=== PATIENT | female | born 1965 | race Caucasian/White ===

== ENCOUNTER → 2017-05-02 12:24 | Outpatient (CLI) | payer MEDICAID, SELFPAY ==
--- NOTE | 2017-05-02 13:00 | MRI_ITS ---
STUDY: MRI LUMBAR SPINE WITHOUT CONTRAST REASON FOR EXAM: Female, 51 years old. BACK AND RT LEG PAIN, FALL X 2. TECHNIQUE: Standardized fat and water weighted pulse sequences were obtained in the sagittal and axial planes. COMPARISON: None FINDINGS: T12-L1: Normal endplates. Normal disc height, hydration and morphology. Normal bilateral facet joints. Normal central canal and bilateral lateral recesses. Normal bilateral intervertebral neural foramina. Normal lumbar lordosis. There is no substantial scoliosis. Normal conus medullaris that terminates at the L1 L1-2: Normal endplates. Normal disc height, hydration and morphology. Normal bilateral facet joints. Normal central canal and bilateral lateral recesses. Normal bilateral intervertebral neural foramina. L2-3: There is minimal disc space narrowing and endplate spondylosis. There is no significant disc herniation, spinal canal or foramina stenosis.. L3-4: There is minimal disc space narrowing and endplate spondylosis. There is a mild disc bulge without significant central canal or foraminal stenosis. L4-5: There is minimal disc space narrowing and endplate spondylosis. There is a minimal disc bulge without significant central canal or foraminal stenosis. L5-S1: There is minimal disc space narrowing and endplate spondylosis. There is a minimal disc bulge without significant central canal or foraminal stenosis. Normal visualized sacral ala. Normal visualized paraspinous soft tissue structures. MRI/Spine Lumbar (Routine) IMPRESSION: Minimal multilevel degenerative changes. Electronically Signed: Spenser Chacko MD at 12:26 EST Tel , Service support ,
== END ==
PROVIDERS: Family Provider Family Medicine; PCP Family Medicine; Visit Provider Anesthesiology Pain Medicine
DX: M54.9 Dorsalgia, unspecified (principal); M79.604 Pain in right leg
CPT/HCPCS: 72148

== ENCOUNTER → 2017-06-05 13:00 | Outpatient (CLI) | payer MEDICAID, SELFPAY ==
--- NOTE | 2017-06-05 13:05 | RAD_ITS ---
STUDY: X-RAY - CERVICAL SPINE REASON FOR EXAM: Female, 51 years old. Neck and arm pain TECHNIQUE: 2 view(s) of the cervical spine were obtained. COMPARISON: 01/02/2017 FINDINGS: Normal anterior atlantoaxial articulation. Normal odontoid process. Normal cervical lordosis. Normal vertebral bodies and endplates. Mild disc space narrowing. The soft tissue structures are unremarkable. RAD/Cerv Spine 2 or 3 Views IMPRESSION: Mild disc space narrowing, otherwise unremarkable cervical spine. Electronically Signed: Bird Crews MD at 13:29 EDT , Service support ,
== END ==
PROVIDERS: Family Provider Family Medicine; PCP Family Medicine; Visit Provider Anesthesiology Pain Medicine
DX: M54.2 Cervicalgia (principal); M79.603 Pain in arm, unspecified
CPT/HCPCS: 72040; 72050

== ENCOUNTER → 2017-06-27 14:03 | Outpatient (CLI) | payer MEDICAID, SELFPAY ==
--- NOTE | 2017-06-27 14:04 | RAD_ITS ---
STUDY: X-RAY - RIGHT SHOULDER REASON FOR EXAM: Shoulder pain. TECHNIQUE: 3 view(s) of the shoulder. COMPARISON: None. FINDINGS: Normal glenohumeral articulation. Normal acromioclavicular joint. Normal acromion. Normal humeral head and visualized proximal humerus. The soft tissue structures are unremarkable. Normal visualized pulmonary apex. RAD/Shoulder min 2 Views IMPRESSION: Normal x-ray examination of the right shoulder. Electronically Signed: Almas Langford MD at 15:55 EDT Tel , Service support ,
== END ==
PROVIDERS: Family Provider Family Medicine; PCP Family Medicine; Visit Provider Orthopaedic Surgery
DX: M25.511 Pain in right shoulder (principal)
CPT/HCPCS: 73030

== ENCOUNTER → 2018-11-27 09:11 | Outpatient (CLI) | payer MEDICAID, SELFPAY ==
[2018-11-08 15:01] VITALS: BMI 20.5
== END ==
PROVIDERS: Family Provider Family Medicine; PCP Family Medicine; Referring Provider Internal Medicine Cardiovascular Disease; Visit Provider Internal Medicine Cardiovascular Disease
DX: I95.9 Hypotension, unspecified (principal); R00.2 Palpitations
CPT/HCPCS: 93225; 93226

== ENCOUNTER → 2018-11-29 08:27 | Outpatient (CLI) | payer MEDICAID, SELFPAY ==
[2018-11-08 15:01] VITALS: BMI 20.5
--- NOTE | 2018-11-29 08:27 | ECHOD_ITS ---
Reason For Study: ARRHYTHMIA Procedure This was a 2D Doppler, Color Flow transthoracic echocardiogram. The exam was of adequate technical quality. Exam performed in department. Left Ventricle Normal LV size. Left ventricular systolic function is normal. The estimated ejection fraction is 60 %. No evidence for diastolic dysfunction. No regional wall motion abnormalities noted. Right Ventricle Normal RV size. Normal systolic function. Atria Normal left atrium. Normal right atrium. No doppler evidence for ASD. Mitral Valve There is mild mitral annular calcification. Normal mitral valve. Trivial mitral valve insufficiency. Tricuspid Valve Normal tricuspid valve. Mild tricuspid valve insufficiency. Right ventricular systolic pressure estimated to be 21 mmHg. Aortic Valve Trisinus/trileaflet aortic valve. Mild diffuse aortic valve thickening. Mild (1+) aortic valve insufficiency. Pulmonic Valve The pulmonic valve is not well visualized. Great Vessels Normal sized aortic root. Pericardium/Pleural No pericardial effusion. MMode/2D Measurements & Calculations LVIDd: 3.8 cm IVSd: 0.72 cm Ao root diam: 3.0 cm LVIDs: 2.7 cm LVPWd: 0.76 cm RVDd: 3.2 cm FS: 28.0 % LAV(MOD-bp): 34.2 ml LVAd ap4: 22.0 cm2 SV(MOD-sp4): 32.7 ml LAV(MOD-bp) Indexed: 22.6 ml/m2 EDV(MOD-sp4): 56.6 ml LAV(MOD-sp2): 34.9 ml EDV(sp4-el): 59.9 ml LAV(MOD-sp4): 28.0 ml LVAs ap4: 13.4 cm2 ESV(MOD-sp4): 23.9 ml ESV(sp4-el): 25.1 ml EF(MOD-sp4): 57.8 % EF(sp4-el): 58.1 % SV(sp4-el): 34.8 ml LA A4 area: 12.6 cm2 LA dimension(2D): 2.9 cm RA A4 area: 11.2 cm2 Time Measurements MV dec time: 0.19 sec Doppler Measurements & Calculations MV E max jesse: 63.9 cm/sec Lat Peak E' Jesse: 8.4 cm/sec Med Peak E' Jesse: 5.4 cm/sec MV A max jesse: 49.7 cm/sec E/E' lat: 7.6 E/E' med: 11.8 MV E/A: 1.3 Ao V2 max: 101.3 cm/sec AI max jesse: 429.6 cm/sec LV V1 max: 77.1 cm/sec Ao max P.1 mmHg AI max P.9 mmHg LV V1 max P.4 mmHg AI dec slope: 195.5 cm/sec2 AI P1/2t: 643.6 msec PA V2 max: 61.5 cm/sec TR max jesse: 213.5 cm/sec TR max P.2 mmHg Interpretation Summary Left ventricular systolic function is normal. The estimated ejection fraction is 60 %. There is mild mitral annular calcification. Trivial mitral valve insufficiency. Mild tricuspid valve insufficiency. Mild diffuse aortic valve thickening. Mild (1+) aortic valve insufficiency. Right ventricular systolic pressure estimated to be 21 mmHg. No evidence for diastolic dysfunction. Ordering Physician: Max Rajput Referring Physician: SANDEE HANNA Performed By: Caterina Esqueda, RDCS, RVT
== END ==
PROVIDERS: Family Provider Family Medicine; PCP Family Medicine; Referring Provider Internal Medicine Cardiovascular Disease; Visit Provider Internal Medicine Cardiovascular Disease
DX: I95.9 Hypotension, unspecified (principal); R00.2 Palpitations
CPT/HCPCS: 93306

== ENCOUNTER 2024-05-04 16:56 | Emergency (ER) | payer MEDICAID, SELFPAY ==
[2024-05-04 16:57] VITALS: BP 125/75; PULSE 94; RESP 19; TEMP 36.7; O2SAT 95; BMI 21.2
--- NOTE | 2024-05-04 17:06 | EX.ED.DYSGE1 ---
HPI History of Present Illness Chief Complaint: [facility] Medical History (Updated 12/21/18 @ 09:04 by Estelita Main) Osteoporosis Fibromyalgia Asthma Palpitations Hypotension Home Medications ?Medication ?Instructions ?Recorded ?Last Taken ?Type albuterol sulfate 90 mcg/actuation 2 puff inhalation Q4H 11/07/18 Unknown History aerosol inhaler (ProAir HFA) alendronate 70 mg tablet (Fosamax) 70 mg PO QWEEK 11/07/18 Unknown History benztropine 1 mg tablet 1 mg PO BID 11/07/18 Unknown History bupropion HCl 150 mg 24 hr tablet, 150 mg PO QAM 11/07/18 Unknown History extended release (Wellbutrin XL) calcium carbonate 500 mg PO TID 11/07/18 Unknown History clonazepam 0.5 mg tablet 0.5 mg PO BID 11/07/18 Unknown History conj estrogen-medroxyprogesterone 1 tab PO DAILY 11/07/18 Unknown History 0.3 mg-1.5 mg tablet (Prempro) fluticasone propionate 50 2 spray intranasal DAILY 11/07/18 Unknown History mcg/actuation nasal spray,suspension (Allergy Relief (fluticasone)) fluvoxamine 100 mg tablet 100 mg PO QHS 11/07/18 Unknown History ketotifen fumarate 0.025 % (0.035 1 drp ophthalmic (eye) BID 11/07/18 Unknown History %) eye drops (Zaditor) tizanidine 4 mg tablet 2 mg PO Q8H PRN 11/07/18 Unknown History mecobalamin (vitamin B12) 1,000 1,000 mcg sublingual DAILY 11/08/18 Unknown History mcg disintegrating tablet,sublingual rizatriptan 10 mg tablet 10 mg PO DAILY PRN 11/08/18 Unknown History vitamin E 200 unit capsule 200 unit PO DAILY 11/08/18 Unknown History aripiprazole 20 mg tablet 20 mg PO DAILY 12/21/18 Unknown History cholecalciferol (vitamin D3) 25 1,000 unit PO DAILY 12/21/18 Unknown History mcg (1,000 unit) capsule (Vitamin D3) ergocalciferol (vitamin D2) 1,250 50,000 unit PO QWEEK 12/21/18 Unknown History mcg (50,000 unit) capsule (Vitamin D2) topiramate 25 mg tablet (Topamax) 25 mg PO BID PRN 12/21/18 Unknown History benzonatate 100 mg capsule 100 mg PO TID PRN cough #10 caps 05/04/24 Unknown Rx prednisone 20 mg tablet 20 mg PO DAILY #5 tabs 05/04/24 Unknown Rx Allergy/AdvReac Type Severity Reaction Status Date / Time No Known Allergies Allergy Unverified 12/21/18 08:53 Family History Father Heart disease Mother Heart disease Brother Heart disease Sister Heart disease Surgical History History of tubal ligation Social History (Updated 12/21/18 @ 09:39 by Ruchi SAMSON, PA) Smoking Status: Former smoker quit date: 03/13/16 pack-years: 1 how long ago did patient quit smokin years ago alcohol intake: current alcohol intake frequency: a few times a week Alcohol type: beer substance use type: does not use caffeine: Yes Type: coffee Number of servings: 3 EXAM Physical Exam Const Vital Signs: 05/04/24 16:57 05/04/24 17:02 05/04/24 17:34 Temperature 98.1 F Temperature Source Oral Pulse Rate 94 Respiratory Rate 19 H Respiratory Effort Normal Respiratory Pattern Normal Blood Pressure 125/75 H Blood Pressure Mean 91 Pulse Ox 95 98 Oxygen Delivery Method Room Air Room Air 05/04/24 19:00 05/04/24 19:08 05/04/24 19:21 Temperature 98.4 F 98.5 F Temperature Source Oral Pulse Rate 89 87 85 Respiratory Rate 18 17 18 Respiratory Effort Respiratory Pattern Blood Pressure 109/69 109/69 127/75 H Blood Pressure Mean 82 82 92 Pulse Ox 95 95 99 Oxygen Delivery Method Room Air Room Air MDM MDM MDM Narrative Medical decision making narrative: HISTORY OF PRESENT ILLNESS: 58-year-old female history of asthma fibromyalgia, palpitations and osteoporosis presents with concern for exhaustion, weakness, dizzy spells and shortness of breath for 1 month. States her primary care physician prescribed her antibiotics but no one told me I had pneumonia. She denies lower EXTR edema, paroxysmal nocturnal dyspnea, orthopnea. Denies any bleeding diathesis. Denies productive cough but does note a dry cough. Denies fever or chills. Denies chest pain. The patient denies recent surgery in the last 4 weeks or immobilization in the last 3 days, denies previous diagnosis of DVT or PE, hemoptysis, unilateral leg swelling or malignancy with treatment the last 6 months or palliative. No estrogen use noted. REVIEW OF SYSTEMS: Pertinent positives: Shortness of breath Pertinent negatives: Chest pain, leg PHYSICAL EXAM: Nursing triage notes reviewed, Vital signs reviewed Constitutional: please see mdm HENT: MMM Eyes: Pupils equal round and reactive to light, Extraocular muscles intact Neck: No stridor, no JVD, full neck ROM Lungs: Clear to auscultation, No wheezing or rales. No increased work of breathing, no conversational dyspnea, no accessory muscle use, no nasal flaring. No respiratory distress noted Heart: Regular rate and rhythm, No murmurs, No rubs and No gallops, 2+ distal pulses (radial, femoral, posterior tibial) in all extremities Abdomen: Soft, there is no tenderness, rigidity, rebound or guarding, no obvious peritoneal signs, no palpable pulsatile abdominal masses, no auscultated abdominal bruit : No CVAT Extremities: No edema Neuro: No new focal neurological deficits, cranial nerves II through XII intact, 5/5 strength in all present extremities. Intact sensation to light touch in all present extremities, 2+ reflexes bilateral patella tendons. Skin: No rash or lesions noted MEDICAL DECISION MAKING: Chief Complaint: Shortness of breath External records reviewed: Reviewed problem list, allergies and prior imaging. Reviewed echocardiogram from 2019 which showed ejection fraction of 60% Factors affecting care: as per [facility] Social determinants of health: Denies tobacco use History obtained from others: none Consults: none [facility] Narrative: The patient was initially hemodynamically stable, afebrile and nontoxic-appearing. Exam without focal cardiopulmonary maladies. Patient speaking full senses. No signs respiratory distress I considered the following differential diagnosis: Pneumonia, COVID, flu, RSV, arrhythmia, anemia, PE While I considered pulmonary embolism as a potential etiology given report of shortness of breath the patient is a low risk Wells score is not tachycardic or hypoxic and is no sign of right heart strain or EKG. As such I have a low suspicion for PE. I considered obtaining a CTA of the chest, D-dimer but I felt the studies were not indicated at this time given the patient low risk Wells score. ALL IMAGES (IF OBTAINED) HAVE BEEN PERSONALLY REVIEWED AND INTERPRETED BY MYSELF. EKG with normal sinus rhythm rate 83, normal axis, normal intervals QTc 418, no STEMI no signs of right heart strain CBC without leukocytosis, severe anemia, no thrombocytopenia. BMP without evidence of significant electrolyte abnormalities, no anion gap, no acute kidney injury. High-sensitivity troponin is negative, no evidence of myocardial ischemia I have personally reviewed the patient's chest x-ray. Chest x-ray is unremarkable for pulmonary edema, pneumothorax, pneumonia or focal cardiopulmonary abnormality. COVID flu RSV negative. The synthesis of the patient's history, physical exam, labs and images suggest no acute life-limiting etiology. She may have chronic inflammation however there is no acute abnormalities. She was ambulated here in the emergency department without significant hypoxia. She is appropriate for discharge home with close outpatient follow-up with her PC The patient and/or family, caregivers express understanding. The patient and/or family, caregivers agrees with the plan. Shared decision making: I will have a discussion with the patient and or visitors regarding risk/benefits of further testing or admission. They will be made aware of of the risk/benefits inherent in this decision they will be given the opportunity to voice understanding. Total critical care time today provided was at least 0 minutes. This excludes separately billable procedures. Critical care time (if documented) is secondary to the patient having high probability of clinically significant/life threatening deterioration in the patient's condition which required my urgent intervention. Impression: 1. Dyspnea 2. Cough Dispo: Discharge home This note was generated with [employer] ([employer] dictation software. It may contain incorrect words, spelling, and punctuation that were not noted in review of the chart prior to signing. Lab Data Labs: Laboratory Results - last 24 hr 05/04/24 17:24 WBC 8.9 RBC 4.32 Hgb 13.0 Hct 39.2 MCV 90.7 MCH 30.1 MCHC 33.2 RDW Std Deviation 42.5 RDW Coeff of [place] 12.9 Plt Count 544 H MPV 9.8 Immature Gran % (Auto) 0.900 Neut % (Auto) 92.5 H Lymph % (Auto) 5.6 L [place] % (Auto) 0.9 Eos % (Auto) 0.0 Baso % (Auto) 0.1 Absolute Neuts (auto) 8.2 H Absolute Lymphs (auto) 0.50 L Nucleated RBC % 0 Sodium 138 Potassium 3.8 Chloride 105 Carbon Dioxide 27.0 Anion Gap 7 BUN 15 Creatinine 0.88 Estim Creat Clear Calc 62.70 Est GFR (MDRD) Af Amer 85 Est GFR (MDRD) Non-Af 70 BUN/Creatinine Ratio 17.1 Glucose 159 H Calcium 9.0 Troponin I High Sens < 3 L Radiography Diagnostic Testing: Clinical Impression(s) from Imaging Studies Chest X-Ray 05/04/24 17:38 IMPRESSION: No acute airspace abnormality. [facility] T[facility] Chief Complaint: Cold Sx ED Provider: Benito Pleitez Dx/Rx/DC Orders Instructions: ED Dyspnea, ED URI, Viral, No Abx (Adult) Prescriptions: New benzonatate 100 mg capsule 100 mg PO TID PRN (Reason: cough) Qty: 10 0RF prednisone 20 mg tablet 20 mg PO DAILY Qty: 5 0RF No Action rizatriptan 10 mg tablet 10 mg PO DAILY PRN mecobalamin (vitamin B12) 1,000 mcg tablet,disintegrating 1,000 mcg SUBLINGUAL DAILY vitamin E 200 unit capsule 200 unit PO DAILY fluvoxamine 100 mg tablet 100 mg PO QHS benztropine 1 mg tablet 1 mg PO BID alendronate [Fosamax] 70 mg tablet 70 mg PO QWEEK Prempro 0.3-1.5 mg tablet 1 tab PO DAILY bupropion HCl [Wellbutrin XL] 150 mg tablet extended release 24 hr 150 mg PO QAM calcium carbonate 500 mg calcium (1,250 mg) capsule 500 mg PO TID albuterol sulfate [ProAir HFA] 90 mcg/actuation HFA aerosol inhaler 2 puff INHALATION Q4H ketotifen fumarate [Zaditor] 0.025 % (0.035 %) drops 1 drp OPHTHALMIC BID tizanidine 4 mg tablet 2 mg PO Q8H PRN clonazepam 0.5 mg tablet 0.5 mg PO BID fluticasone propionate [Allergy Relief (fluticasone)] 50 mcg/actuation spray,suspension 2 spray INTRANASAL DAILY topiramate [Topamax] 25 mg tablet 25 mg PO BID PRN aripiprazole 20 mg tablet 20 mg PO DAILY ergocalciferol (vitamin D2) [Vitamin D2] 50,000 unit capsule 50,000 unit PO QWEEK cholecalciferol (vitamin D3) [Vitamin D3] 1,000 unit capsule 1,000 unit PO DAILY Primary Care Provider: Lou Miller Referrals: Lou Miller DO [Primary Care Provider] - Activity Restrictions/Additional Instructions: Thank you for trusting us with your care today! Your labs images were reassuring. Please continue to take home therapies as prescribed by your primary doctor. Please take Tylenol (2 pills, 650 mg), ibuprofen (2 pills, 400 mg) every 6 hours as needed for pain and fever control. Please return to the emergency department if your symptoms change or worsen. Please follow with your primary care physician for further outpatient evaluation and management. Print Language: Swazi Disposition Disposition: Home, Self Care Discharge Date/Time: 05/04/24 19:25
--- NOTE | 2024-05-04 17:18 | EKG12_ITS ---
Test Reason : GENERAL Blood Pressure : */* mmHG Vent. Rate : 83 BPM Atrial Rate : 83 BPM P-R Int : 146 ms QRS Dur : 72 ms QT Int : 356 ms P-R-T Axes : 52 32 70 degrees QTcB Int : 418 ms Normal sinus rhythm Normal ECG Confirmed by Alfonso Collier ([id number]), proposal editor JACKSON RAMOS ([id number]) on 05/06/2024 10:19:27 AM Referred By: Confirmed By: Alfonso Collier
[2024-05-04 17:34] VITALS: O2SAT 98
[2024-05-04 17:34] LABS: Absolute Neutrophil Count 8.2 X10^3/uL (2.0-7.7); Basophil# 0.01 X10^3/uL; Basophil% 0.1 % (0-1); Hematocrit 39.2 % (37-47); Lymphocyte % 5.6 % (19-41); Mean Corp Hgb Conc 33.2 g/dL (32-36); Mean Corpuscular Hgb 30.1 pg (27.0-32.0); Mean Corpuscular Volume 90.7 fL (81-99); Mean Platelet Vol. 9.8 fl (6.2-12.0); Monocyte# 0.08 X10^3/uL; Monocyte% 0.9 % (0-10); NRBC Flagged by Analyzer 0 % (0-5); Neutrophil # 8.18 X10^3/uL (2.7-7.7); Neutrophil % 92.5 % (47-70); Platelet Count 544 K/mm3 (150-450); RBC Distribution Width CV 12.9 % (11.6-14.6); RBC Distribution Width SD 42.5 fl (35.1-43.9); Red Blood Count 4.32 M/mm3 (4.2-5.4); White Blood Count 8.9 K/mm3 (4.4-11.0)
--- NOTE | 2024-05-04 17:38 | RAD_ITS ---
PROCEDURE: Chest radiograph REASON FOR EXAM: Shortness of breath TECHNIQUE: Frontal view of the chest COMPARISON: None. FINDINGS: Cardiomediastinal silhouette is within normal limits. Lungs are clear. No sizable pneumothorax. RAD/Chest 1 View (Portable) IMPRESSION: No acute airspace abnormality. Reading Location: [facility]
[2024-05-04 18:41] LABS: Anion Gap 7 (5-15); BUN 15 mg/dL (7-18); BUN/Creat Ratio 17.1 RATIO (10-20); Chloride 105 mmol/L (98-107); Creatinine, Serum 0.88 mg/dL (0.55-1.02); EST Glomerular Filtration Rate 70 mL/min (>60); Est Glom Filt Rate - Afr Amer 85 mL/min (>60); Glucose 159 mg/dL (74-106); Potassium 3.8 mmol/L (3.5-5.1); Sodium Level 138 mmol/L (136-145); Troponin-I HS < 3 pg/mL (3.0-54.0)
[2024-05-04 19:00] VITALS: BP 109/69; PULSE 89; RESP 18; O2SAT 95
[2024-05-04 19:08] VITALS: BP 109/69; PULSE 87; RESP 17; TEMP 36.9; O2SAT 95
[2024-05-04 19:17] VITALS: O2SAT 95
[2024-05-04 19:21] VITALS: BP 127/75; PULSE 85; RESP 18; TEMP 36.9; O2SAT 99
== END 2024-05-04 19:25 | disposition home or self-care (01) ==
PROVIDERS: Emergency Provider Emergency Medicine; PCP Family Medicine; Visit Provider Emergency Medicine
DX: R06.00 Dyspnea, unspecified (principal); R05.9 Cough, unspecified; Z11.52 Encounter for screening for COVID-19; M81.0 Age-related osteoporosis without current pathological fracture; J45.909 Unspecified asthma, uncomplicated; M79.7 Fibromyalgia; Z79.899 Other long term (current) drug therapy; Z87.891 Personal history of nicotine dependence
CPT/HCPCS: 71045; 80048; 84484; 85025; 87631; 93005; 99285; A4216